=== PATIENT | male | born 1995 | race Two or more races ===

== ENCOUNTER 2022-08-16 23:05 | Emergency (ER) | payer BC ==
[~2022-08-16] VITALS: Ht 193 cm; Wt 145.1 kg
[2022-08-17] MEDS ORDERED: TUSNEL LIQUID178 ML PO (01:45)
[2022-08-17] MEDS ORDERED: PROAIR RESPICL90 MCG IH (01:45)
[2022-08-17] MEDS ORDERED: PAXLOVID 300-11 EACH PO (01:45)
== END 2022-08-17 02:00 | disposition home or self-care (01) ==
LOC: ER 23:05
DX: U07.1 COVID-19 (principal); B34.9 Viral infection, unspecified; R53.81 Other malaise